=== PATIENT | male | born 1990 | race Two or more races ===

== ENCOUNTER 2021-05-08 11:03 | Emergency (ER) | payer SELFPAY ==
[~2021-05-08] VITALS: Ht 172.7 cm; Wt 97.5 kg
[2021-05-08 12:30] VITALS: BP 130/85
== END 2021-05-08 13:38 | disposition home or self-care (01) ==
LOC: ER 11:03
DX: S96.911A Strain of unspecified muscle and tendon at ankle and foot level, right foot, initial encounter (principal); X50.0XXA Overexertion from strenuous movement or load, initial encounter; Y93.89 Activity, other specified; Y92.89 Other specified places as the place of occurrence of the external cause; Y99.8 Other external cause status
CPT/HCPCS: 73610; 73630